=== PATIENT | male | born 1935 | race Caucasian/White ===

== ENCOUNTER 2017-02-04 10:09 | Inpatient (IN) | payer OTHER ==
--- NOTE | ~2017-02-04 | IDS ---
Interim Discharge Summary [facility] [address] [place]. [address] NAME: JASON HODGE : 31 STATUS : DIS IN PAT#: [id number] AGE: 81 ADM/REG DATE : 02/04/17 MR#: [id number] REPORT SERV DATE: 02/06/17 DICTATED BY: JASPER HILL DATE: 02/06/17 REPORT STATUS : Draft TRANSCRIBED BY: MODL DATE: 02/06/17 ADMISSION DATE: 02/04/2017 DISCHARGE DATE: 02/06/2017 INTERIM DIAGNOSES: 1. Status post ventricular tachycardia and ventricular fibrillation arrest. 2. Acute hypoxic respiratory failure. 3. Shock. 4. Acute liver injury. 5. Acute renal failure. 6. Atrial fibrillation with rapid ventricular response. 7. Acute encephalopathy. ICU COURSE: Please see dictated H and P for full patient presentation and history. BRIEF SUMMARY: The patient is an 81-year-old gentleman who was admitted to the hospital on the 02/04/2017, after experiencing an out of hospital ventricular tachycardic and ventricular fibrillation arrest in his physician's office. The patient was down for approximately 2-3 minutes before EMS arrived and began performing CPR. On arrival to the emergency room here, he was nonresponsive and having signs of posturing, so hypothermia was initiated in the emergency room and he was admitted to the CCU for further management. 1. Acute encephalopathy. There was concern for resulting anoxic injury following his arrest. The patient has been on hypothermia protocol, as of this morning he has been re-warmed and will now be maintained with normothermia for the remainder of the 72-hour period, at that time if the patient is still unresponsive we will get a Neurology consult to begin assessing his neuro function and prognosis. For now, we will continue with normothermia protocol until the 72 hours are up. We will be giving him a sedation holiday this morning to initially assess his mental status. 2. Acute hypoxic respiratory failure. The patient remains on the ventilator. We will continue with ventilator management. For the remainder of the hypothermia protocol for targeting a PO2 greater than 80 and a pCO2 between 30 and 45 to help with cerebral perfusion. Once the normothermia phase is over we will begin weaning his ventilator further as tolerated. 3. Shock. The patient remains on Levophed to maintain a MAP greater than 80, again to help with cerebral perfusion. Once normothermia is over we can start weaning for a MAP greater than 60. 4. Acute liver injury. LFTs were initially secondary to shock that has been trending down. We will continue to monitor this daily. 5. Acute renal failure. The patient's renal function has been good so far. His creatinine is elevated today compared to yesterday, but he still maintains good urine output. I am going to give him some gentle IV fluids today and continue to monitor his urine output closely. 6. Atrial fibrillation with rapid ventricular response. Cardiology has been managing this. He has been on a lidocaine drip and then had a rapid ventricular response early this morning, so they have now switched him to IV amiodarone. We will continue to defer management to them. He has also been on a heparin drip and he will likely need a Interim Discharge Summary [address] [address] NAME: JASON HODGE : 31 STATUS : DIS IN PAT#: [id number] AGE: 81 ADM/REG DATE : 02/04/17 MR#: [id number] REPORT SERV DATE: 02/06/17 DICTATED BY: JASPER HILL DATE: 02/06/17 REPORT STATUS : Draft TRANSCRIBED BY: MODL DATE: 02/06/17 cardiac catheterization if his neuro function is good given his ventricular tachycardia arrest. 7. The patient remains critically ill in the ICU. The oncoming real estate transaction coordinator will assume care tomorrow. Please call if you have any questions. RAMON/MODL Jasper Hill MD / [id number] CC: Mao Delgado M.D. Juanito Sepulveda M.D.
--- NOTE | ~2017-02-04 | CN ---
Consultation Report [facility] [address] [facility] [place]. [address] NAME: JASON HODGE : 33 STATUS : DIS IN PAT#: [id number] AGE: 81 ADM/REG DATE : 02/04/17 MR#: [id number] REPORT SERV DATE: 02/04/17 DICTATED BY: DATE: REPORT STATUS : Draft TRANSCRIBED BY: MODL DATE: 02/04/17 CONSULTATION DATE OF CONSULTATION: 02/04/2017 CHIEF COMPLAINT/REASON FOR CONSULT: VF arrest. PRIMARY CARE PROFESSIONALS: Bridger Lemus M.D. History and physical was taken from his as the patient is intubated and unresponsive. HISTORY OF PRESENT ILLNESS: The patient is a very pleasant 81-year-old gentleman, who was on his way for a CT evaluation of his thoracic aorta. Today, his stated that he felt well when getting up and getting ready to go to his appointment. While driving in the car, he began to feel dizzy. 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 The patient reportedly had VF via EMS and underwent cardioversion. He also had VF documented on strip here in the emergency department and was cardioverted with 200 joules x1 and now remains in atrial fibrillation. Epi 1 mg and 1 mg of bicarb were given and an amiodarone drip started. The patient is currently in atrial fibrillation with rapid ventricular response at 115 beats per minute. PAST MEDICAL HISTORY: 1. Chronic atrial fibrillation, on chronic anticoagulation therapy. 2. Normal left ventricular systolic function via echocardiogram performed on 01/15/2017. 3. Mild aortic stenosis. 4. COPD. 5. Hypertension. 6. Hyperlipidemia. 7. Peripheral vascular disease. SOCIAL HISTORY: The patient is . He is a former smoker. He does not use alcohol or extracurricular drugs. ALLERGIES: AMIODARONE AND SOTALOL. OUTPATIENT MEDICATIONS: Include: 1. Diltiazem 240 mg per day. 2. Hydrocodone/acetaminophen. 3. Prinivil 20 mg p.o. daily. 4. Ativan 0.5 mg p.o. q.p.m. 5. Prilosec 20 mg p.o. daily. 6. Pravachol 20 mg p.o. q.p.m. 7. Jantoven. Consultation Report [facility] [address] [place]. [address] NAME: JASON HODGE : 33 STATUS : DIS IN PAT#: [id number] AGE: 81 ADM/REG DATE : 02/04/17 MR#: [id number] REPORT SERV DATE: 02/04/17 DICTATED BY: DATE: REPORT STATUS : Draft TRANSCRIBED BY: MODL DATE: 02/04/17 REVIEW OF SYSTEMS: Unobtainable as the patient is intubated and sedated. PHYSICAL EXAMINATION: VITAL SIGNS: Heart rate 115. Blood pressure is 146/63. GENERAL: Mr. Hodge is unresponsive. HEENT: His pupils are pinpoint. NECK: I could not appreciate jugular venous distention. There is an irregular jugular venous pulse consistent with atrial fibrillation. HEART: Irregular. Soft S1, S2. There is a 2/6 systolic murmur present at the left sternal border. LUNGS: Clear anteriorly. Noted the chest is flail. Irritation of the chest consistent with CPR is noted. ABDOMEN: Soft and nontender. EXTREMITIES: Cool. The right toe is blue. There are venous varicosities. I could not appreciate any pitting edema. NEUROLOGIC: The patient is unresponsive at this time. He has not been sedated nor has he been paralyzed. RESULTS OF TESTS AND STUDIES: I have reviewed the strip performed at 0959 hours, which documented ventricular fibrillation. An initial EKG performed in the emergency department demonstrated a right bundle-branch block with underlying atrial fibrillation. There was ST- elevation in the inferior leads and ST-segment depression in the anterolateral leads suggestive of ischemia. Repeat EKG performed at 1024 hours documented the patient's underlying atrial fibrillation with mild anterolateral ST-segment depression suggestive of ischemia. A transthoracic echocardiogram performed on 01/15/2017 demonstrated normal left ventricular systolic function and mild aortic stenosis. Limited laboratory results are available. Hemoglobin 13.5, hematocrit of 41.3, platelet count is 256. INR is 1.9. pH is 7.11, pO2 416. Oxygen saturations 99%. IMPRESSION, REPORT, AND PLAN: 1. Ventricular fibrillation arrest. Unclear etiology. 2. Chronic atrial fibrillation. 3. Hypertension. 4. Peripheral vascular disease. 5. Hyperlipidemia. RECOMMENDATIONS: 1. Would DC amiodarone drip. He has an unknown allergy to amiodarone per his . 2. We would start lidocaine at 1 mg/minute. 3. We will await the rest of his electrolyte panel and cardiac biomarkers. 4. Check echocardiogram to evaluate for regional wall motion abnormalities. 5. Start low-dose Coreg as blood pressure tolerates. 6. Additional recommendations pending clinical course and neurologic . Consultation Report [facility] [address] [place]. [address] NAME: JASON HODGE : 33 STATUS : DIS IN PAT#: [id number] AGE: 81 ADM/REG DATE : 02/04/17 MR#: [id number] REPORT SERV DATE: 02/04/17 DICTATED BY: DATE: REPORT STATUS : Draft TRANSCRIBED BY: KVNG DATE: 02/04/17 [facility]/KVNG Daniella Berry M.D. / [id number] CC: Thania Lo M.D.
--- NOTE | ~2017-02-04 | DS ---
Discharge Summary [facility] [id number] [facility] [place]. 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 HOSPITAL COURSE: Please see history and physical by Dr. Delgado on 02/04/2017 for full detail and interim discharge summary on 02/06/[address] Hill. Of note, this patient was admitted with a post-cardiac arrest and ventricular tachycardia arrest out in the field and has sustained a multisystem organ failure. He is currently with findings of anoxic brain injury, family is at the bedside. The patient has been placed on hypothermia protocol and now has been rewarmed. The patient has had no significant improvement with his mental status after rewarming. The family felt that this is not in the patient's best interest that this is not what he would want to have done for him. He was already made DO NOT RESUSCITATE earlier in the day and this evening patient was transitioned to comfort care and around 5 or 6 o'clock this evening. Please see nursing documentation for exact timing. DISPOSITION: . DICTATED BY: Keren Jarquin MD [facility]/KVNG Keren Jarquin MD / [id number] CC: Thania Lo M.D.
--- NOTE | ~2017-02-04 | HP ---
History And Physical [address] [address] NAME: JASON HODGE : 33 STATUS : DIS IN PAT#: [id number] AGE: 81 ADM/REG DATE : 02/04/17 MR#: [id number] REPORT SERV DATE: 02/04/17 DICTATED BY: CAROLINE DELGADO DATE: 02/04/17 REPORT STATUS : Draft TRANSCRIBED BY: MODL DATE: 02/04/17 DATE OF ADMISSION: 02/04/2017 TIME: 1030 hours. LOCATION: Seen in ER room 3. HISTORY OF PRESENT ILLNESS: The patient is an 81-year-old, white male with known history of cardiac disease. He is being followed by Dr. Lemus. He was on his way to the hospital today to get a CT of his aortic root with a suspected aneurysm. During the way, he had chest discomfort, then went into a VFib arrest. According to the paramedics, he was down for around 9 to 10 minutes. CPR was ongoing at this time. His rhythm returned after 1 shock and 2 doses of epi, 1 dose of bicarbonate. His post arrest pH showed a pH of 7.13, base deficit -12 with excellent PO2. He was given 4 amps of bicarb. Other labs are not available. EKG, rhythm strip showed VFib. Post conversion EKG shows atrial flutter with ST elevations and depressions. PAST MEDICAL HISTORY: Significant for hypertension. He is on an angiotensin-converting enzyme inhibitor and beta-christiana and anti-inflammatory medication. ALLERGIES: AMIODARONE PREVIOUSLY. THE PATIENT HAD REQUIRED INTUBATION. REVIEW OF SYSTEMS: Otherwise, negative and noncontributory. He does have some known peripheral vascular disease. FAMILY HISTORY: Noncontributory. PHYSICAL EXAMINATION: VITAL SIGNS: Blood pressure 111/90, pulse 115 and regular, afebrile. HEENT: Head is normocephalic. Pupils are pinpoint. NECK: Supple. CHEST: Decreased breath sounds with definite flail anteriorly. ABDOMEN: Soft, nontender. No masses or organomegaly. EXTREMITIES: No clubbing, cyanosis, or edema. Pulses palpable. NEUROLOGIC: Nonresponsive. Chest x-ray shows good placement of ET tube. No pneumothorax. Other labs are pending at this time. Previous echo that was done in 2012 showed an EF of 65%. RP/MODL Caroline Delgado M.D. History And Physical [address] [address] NAME: JASON HODGE : 33 STATUS : DIS IN PAT#: [id number] AGE: 81 ADM/REG DATE : 02/04/17 MR#: [id number] REPORT SERV DATE: 02/04/17 DICTATED BY: CAROLINE DELGADO DATE: 02/04/17 REPORT STATUS : Draft TRANSCRIBED BY: KVNG DATE: 02/04/17 / [id number] CC: Thania Lo M.D.
--- NOTE | ~2017-02-04 | HP ---
History And Physical [address] [address] NAME: JASON HODGE : 31 STATUS : DIS IN PAT#: [id number] AGE: 81 ADM/REG DATE : 02/04/17 MR#: [id number] REPORT SERV DATE: 02/04/17 DICTATED BY: CAROLINE DELGADO DATE: 02/04/17 REPORT STATUS : Draft TRANSCRIBED BY: MODL DATE: 02/04/17 DATE OF ADMISSION: 02/04/2017 ADDENDUM: IMPRESSION: Status post cardiac arrest, possible myocardial infarction, mild chronic obstructive pulmonary disease, peripheral vascular disease. We will initiate hypothermia protocol. Dr. Berry of Cardiology is seeing the patient. SIMEON/KVNG Caroline Delgado M.D. / [id number] CC: Thania Lo M.D.
[~2017-02-04 10:09] MED LIST: ASAB PO; BUM1 PO; CARDCD180 PO; CARDIZEM LA360 MG PO; CORDARONE PO; JANTOVEN4 MG PO; JANTOVEN5 MG PO; JANTOVEN6 MG PO; MULTIVITAMI1 PO; P10 PO; PRAVAC PO; PRILO PO; PRIN10 PO; SLO-NIACIN250 MG PO; SOTALOL; VENTOLIN HFA INH; ZESTRIL20 MG PO; [UNRECOGNIZED DRUG - REMARK]; [UNRECOGNIZED DRUG - REMARK]; [UNRECOGNIZED DRUG - REMARK]
[2017-02-04 10:33] LABS: BASOPHILS 0.3 %; BASOPHILS ABSOLUTE 0.03 10/3/uL (0.0-0.16); EOSINOPHILS 0.2 %; EOSINOPHILS ABSOLUTE 0.02 10/3/uL (0.0-0.53); ER CBC TAT 0 Hrs 07 Mins; HEMATOCRIT 41.3 % (40.0-51.0); HEMOGLOBIN 13.5 g/dL (13.6-17.8); IMMATURE GRANULOCYTES 1.2 %; IMMATURE GRANULOCYTES ABSOLUTE 0.14 10/3/uL (0.0-0.11); LYMPHOCYTES 42.2 %; LYMPHOCYTES ABSOLUTE 4.73 10/3/uL (0.67-4.30); MANUAL DIFF NO %; MEAN CORPUS HGB CONC 32.7 g/dL (32.0-36.0); MEAN CORPUSCULAR HEMOGLOB 28.7 pg (26.0-34.0); MEAN CORPUSCULAR VOLUME 87.7 fL (80-100); MEAN PLATELET VOLUME 9.7 fL (9.2-13.0); MONOCYTES 7.3 %; MONOCYTES ABSOLUTE 0.82 10/3/uL (0.21-1.20); NEUTROPHILS 48.8 %; NEUTROPHILS ABSOLUTE 5.48 10/3/uL (2.02-8.40); PLATELET COUNT 256 10/3/uL (150-400); RBC DISTRIBUTION WIDTH 15.2 % (12.0-16.0); RED CELL COUNT 4.71 10/6/uL (4.7-6.1); WHITE BLOOD CELLS 11.2 10/3/uL (4.5-10.5)
[2017-02-04 10:34] LABS: BE (BASE EXCESS) -12.1 MEQ/L (0 +/- 2.5); HCO3 (ACTUAL BICARBONATE) 18.1 MEQ/L (23-27); INSTRUMENT SERIAL # 8087; PCO2 (CO2 TENSION) 59 MMHG (35-45); PO2 (O2 TENSION) 416 MMHG (79-93); pH 7.11 (7.37-7.43)
[2017-02-04 10:35] LABS: ALLENS TEST Pos; MODE CMV; SAMPLE Arterial
[2017-02-04 10:40] LABS: INTERNATIONAL NORMAL RATI 1.9 UNITS (-); PARTIAL THROMBO TIME 26.3 SEC (22.5-37.2); PROTIME (NOT ORD) 21.8 SEC (12.0-14.5)
[2017-02-04] MEDS ORDERED: CARDCD240 PO (10:44)
[2017-02-04] MEDS ORDERED: NORCO1 TAB PO (10:46)
[2017-02-04] MEDS ORDERED: PRIN20 PO (10:46)
[2017-02-04] MEDS ORDERED: JANTOVEN3 MG PO (10:46)
[2017-02-04] MEDS ORDERED: PRAVAC PO (10:47)
[2017-02-04] MEDS ORDERED: PRILO PO (10:47)
[2017-02-04] MEDS ORDERED: ATV.5 PO (10:47)
[2017-02-04 10:49] LABS: A/G RATIO 0.8 (0.7-1.9); ALBUMIN 3.2 G/DL (3.5-5.0); ALKALINE PHOSPHATASE 76 U/L (45-117); BUN (BLOOD UREA NITROGEN) 26 MG/DL (6-23); CALCIUM, SERUM 8.7 MG/DL (8.5-10.4); CHEST PAIN PROFILE TAT 0 Hrs 23 Mins; CHLORIDE, SERUM 103 MMOL/L (96-112); CO2 (CARBON DIOXIDE) 24 MMOL/L (24-34); CREATININE 1.14 MG/DL (0.70-1.30); GFR AFRICAN AMERICAN 69 ML/MIN (>=60); GFR NON AFRICAN AMERICAN 59 ML/MIN (>=60); GLUCOSE, SERUM 211 MG/DL (60-99); POTASSIUM, SERUM 3.9 MMOL/L (3.5-5.3); SGOT(AST) 45 U/L (5-40); SGPT(ALT) 53 U/L (5-65); SODIUM, SERUM 139 MMOL/L (135-148); TOTAL BILIRUBIN 0.8 MG/DL (0-1.2); TOTAL PROTEIN 7.2 G/DL (6.0-8.5); TROPONIN I <0.02 NG/ML (<0.05)
[2017-02-04 10:50] LABS: LACTATE 5.9 MMOL/L (0.3-2.4)
[2017-02-04 10:56] LABS: WBC (NOT ORDERED) (RFLEX) 0 (0-5)
[2017-02-04 11:10] LABS: ASCORBIC ACID (UR NOT ORDER) NEG (NEG); BILIRUBIN, URINE NEGATIVE (NEG); ER URINALYSIS TAT 0 Hrs 14 Mins; KETONE, URINE NEGATIVE (NEG); LEUKOCYTE ESTERASE(NOT OR NEG (NEG); NITRITE (URINE) NEG (NEG)
[2017-02-04 16:00] LABS: BE (BASE EXCESS) -2.6 MEQ/L (0 +/- 2.5); CARBOXYHEMOGLOBIN 0.3 % (0-3); HCO3 (ACTUAL BICARBONATE) 26.6 MEQ/L (23-27); HEMOBLOGIN CONTENT 13.5 G/DL (14-18); INSTRUMENT SERIAL # 35151; METHEMOGLOBIN 0.5 % (0-3); O2 CONTENT 18.2 VOL% (18-24); PCO2 (CO2 TENSION) 67 MMHG (35-45); PO2 (O2 TENSION) 103 MMHG (79-93); pH 7.21 (7.37-7.43)
[2017-02-04 16:01] LABS: MODE CMV; SAMPLE Arterial; TIDAL VOLUME 500 ML
[2017-02-04 17:07] LABS: ALLENS TEST Pos; BE (BASE EXCESS) -1.8 MEQ/L (0 +/- 2.5); CARBOXYHEMOGLOBIN 0.6 % (0-3); HCO3 (ACTUAL BICARBONATE) 24.9 MEQ/L (23-27); HEMOBLOGIN CONTENT 13.4 G/DL (14-18); INSTRUMENT SERIAL # 35151; METHEMOGLOBIN 0.5 % (0-3); MODE CMV; O2 CONTENT 18.8 VOL% (18-24); PCO2 (CO2 TENSION) 50 MMHG (35-45); PO2 (O2 TENSION) 183 MMHG (79-93); SAMPLE Arterial; TIDAL VOLUME 500 ML; pH 7.32 (7.37-7.43)
[2017-02-04 17:15] LABS: A/G RATIO 0.9 (0.7-1.9); ALBUMIN 3.2 G/DL (3.5-5.0); ALKALINE PHOSPHATASE 78 U/L (45-117); CALCIUM, SERUM 9.1 MG/DL (8.5-10.4); CHLORIDE, SERUM 103 MMOL/L (96-112); CK-MB 25.3 NG/ML; CO2 (CARBON DIOXIDE) 26 MMOL/L (24-34); CPK 962 U/L (0-200); CREATININE 1.22 MG/DL (0.70-1.30); GFR AFRICAN AMERICAN 63 ML/MIN (>=60); GFR NON AFRICAN AMERICAN 54 ML/MIN (>=60); GLOBULIN 3.7 G/DL (2.5-4.1); GLUCOSE, SERUM 211 MG/DL (60-99); PHOSPHORUS, SERUM 5.5 MG/DL (2.5-4.5); SGOT(AST) 236 U/L (5-40); SGPT(ALT) 227 U/L (5-65); SODIUM, SERUM 138 MMOL/L (135-148); TOTAL BILIRUBIN 0.9 MG/DL (0-1.2); TOTAL PROTEIN 6.9 G/DL (6.0-8.5)
[2017-02-04 17:17] LABS: BUN (BLOOD UREA NITROGEN) 33 MG/DL (6-23); CKMB INDEX (NOT ORD) 2.6
[2017-02-04 17:20] LABS: TROPONIN I 2.36 NG/ML (<0.05)
[2017-02-04 18:19] LABS: BE (BASE EXCESS) -1.2 MEQ/L (0 +/- 2.5); CARBOXYHEMOGLOBIN 0.6 % (0-3); HCO3 (ACTUAL BICARBONATE) 25.5 MEQ/L (23-27); HEMOBLOGIN CONTENT 13.5 G/DL (14-18); INSTRUMENT SERIAL # 35151; METHEMOGLOBIN 0.5 % (0-3); O2 CONTENT 18.2 VOL% (18-24); PCO2 (CO2 TENSION) 51 MMHG (35-45); PO2 (O2 TENSION) 98 MMHG (79-93); SAMPLE Arterial; pH 7.32 (7.37-7.43)
[2017-02-04 18:20] LABS: ALLENS TEST Pos; MODE CMV; TIDAL VOLUME 550 ML
[2017-02-04 19:48] LABS: BE (BASE EXCESS) -1.2 MEQ/L (0 +/- 2.5); CARBOXYHEMOGLOBIN 0.5 % (0-3); HCO3 (ACTUAL BICARBONATE) 22.5 MEQ/L (23-27); INSTRUMENT SERIAL # 35151; METHEMOGLOBIN 0.3 % (0-3); MODE CMV; O2 CONTENT 17.7 VOL% (18-24); OPERATOR ID 13861; PCO2 (CO2 TENSION) 35 MMHG (35-45); PO2 (O2 TENSION) 98 MMHG (79-93); SAMPLE Arterial; TIDAL VOLUME 550 ML; pH 7.43 (7.37-7.43)
[2017-02-04 20:27] LABS: PHOSPHORUS, SERUM 3.7 MG/DL (2.5-4.5); POTASSIUM, SERUM 3.7 MMOL/L (3.5-5.3); TROPONIN I 2.22 NG/ML (<0.05)
[2017-02-04 20:30] LABS: B NATRIURETIC PEPTIDE (BNP) 514.4 PG/ML (< 100.0)
[2017-02-04 20:58] LABS: GLYCOHEMOGLOBIN (HbA1c) 6.6 % (4.7-6.1)
[2017-02-04 20:58] LABS: BASOPHILS 0.1 %; BASOPHILS ABSOLUTE 0.02 10/3/uL (0.0-0.16); EOSINOPHILS 0 %; HEMATOCRIT 34.7 % (40.0-51.0); HEMOGLOBIN 11.6 g/dL (13.6-17.8); IMMATURE GRANULOCYTES 0.3 %; IMMATURE GRANULOCYTES ABSOLUTE 0.05 10/3/uL (0.0-0.11); LYMPHOCYTES 6.3 %; LYMPHOCYTES ABSOLUTE 0.96 10/3/uL (0.67-4.30); MANUAL DIFF NO %; MEAN CORPUS HGB CONC 33.4 g/dL (32.0-36.0); MEAN CORPUSCULAR HEMOGLOB 28.3 pg (26.0-34.0); MEAN CORPUSCULAR VOLUME 84.6 fL (80-100); MONOCYTES 8.6 %; MONOCYTES ABSOLUTE 1.32 10/3/uL (0.21-1.20); NEUTROPHILS 84.7 %; NEUTROPHILS ABSOLUTE 12.97 10/3/uL (2.02-8.40); PLATELET COUNT 263 10/3/uL (150-400); RBC DISTRIBUTION WIDTH 15.1 % (12.0-16.0); WHITE BLOOD CELLS 15.3 10/3/uL (4.5-10.5)
[2017-02-04 21:03] LABS: PARTIAL THROMBO TIME 29.7 SEC (22.5-37.2)
[2017-02-04 21:04] LABS: PROTIME (NOT ORD) 22.6 SEC (12.0-14.5)
[2017-02-05 01:49] LABS: BASOPHILS 0.2 %; BASOPHILS ABSOLUTE 0.02 10/3/uL (0.0-0.16); EOSINOPHILS 0.1 %; EOSINOPHILS ABSOLUTE 0.01 10/3/uL (0.0-0.53); HEMATOCRIT 34.5 % (40.0-51.0); HEMOGLOBIN 11.7 g/dL (13.6-17.8); IMMATURE GRANULOCYTES 0.4 %; IMMATURE GRANULOCYTES ABSOLUTE 0.05 10/3/uL (0.0-0.11); LYMPHOCYTES 13.8 %; LYMPHOCYTES ABSOLUTE 1.58 10/3/uL (0.67-4.30); MEAN CORPUS HGB CONC 33.9 g/dL (32.0-36.0); MEAN CORPUSCULAR HEMOGLOB 28.7 pg (26.0-34.0); MEAN CORPUSCULAR VOLUME 84.8 fL (80-100); MEAN PLATELET VOLUME 8.9 fL (9.2-13.0); MONOCYTES 11.4 %; MONOCYTES ABSOLUTE 1.31 10/3/uL (0.21-1.20); NEUTROPHILS 74.1 %; PLATELET COUNT 250 10/3/uL (150-400); RED CELL COUNT 4.07 10/6/uL (4.7-6.1); WHITE BLOOD CELLS 11.5 10/3/uL (4.5-10.5)
[2017-02-05 02:01] LABS: MANUAL DIFF NO %
[2017-02-05 02:09] LABS: INTERNATIONAL NORMAL RATI 2.1 UNITS (-); PARTIAL THROMBO TIME 34.4 SEC (22.5-37.2); PROTIME (NOT ORD) 23.7 SEC (12.0-14.5)
[2017-02-05 02:14] LABS: A/G RATIO 0.8 (0.7-1.9); ALBUMIN 2.7 G/DL (3.5-5.0); ALKALINE PHOSPHATASE 70 U/L (45-117); BUN (BLOOD UREA NITROGEN) 26 MG/DL (6-23); CALCIUM, SERUM 8.8 MG/DL (8.5-10.4); CHLORIDE, SERUM 107 MMOL/L (96-112); CO2 (CARBON DIOXIDE) 27 MMOL/L (24-34); CPK 2375 U/L (0-200); CREATININE 0.88 MG/DL (0.70-1.30); GFR AFRICAN AMERICAN 92 ML/MIN (>=60); GFR NON AFRICAN AMERICAN 79 ML/MIN (>=60); GLOBULIN 3.2 G/DL (2.5-4.1); GLUCOSE, SERUM 163 MG/DL (60-99); PHOSPHORUS, SERUM 2.5 MG/DL (2.5-4.5); POTASSIUM, SERUM 3.2 MMOL/L (3.5-5.3); SGOT(AST) 176 U/L (5-40); SGPT(ALT) 181 U/L (5-65); SODIUM, SERUM 142 MMOL/L (135-148); TOTAL BILIRUBIN 0.7 MG/DL (0-1.2); TOTAL PROTEIN 5.9 G/DL (6.0-8.5)
[2017-02-05 02:15] LABS: BE (BASE EXCESS) 1.6 MEQ/L (0 +/- 2.5); CARBOXYHEMOGLOBIN 0.4 % (0-3); HCO3 (ACTUAL BICARBONATE) 22.9 MEQ/L (23-27); HEMOBLOGIN CONTENT 12.5 G/DL (14-18); INSTRUMENT SERIAL # 35151; METHEMOGLOBIN 0.4 % (0-3); MODE CMV; OPERATOR ID 13861; PCO2 (CO2 TENSION) 27 MMHG (35-45); PO2 (O2 TENSION) 93 MMHG (79-93); SAMPLE Arterial; TIDAL VOLUME 550 ML; pH 7.55 (7.37-7.43)
[2017-02-05 03:30] LABS: CARBOXYHEMOGLOBIN 0.4 % (0-3); HCO3 (ACTUAL BICARBONATE) 24.5 MEQ/L (23-27); HEMOBLOGIN CONTENT 12.5 G/DL (14-18); INSTRUMENT SERIAL # 35151; METHEMOGLOBIN 0.3 % (0-3); MODE CMV; O2 CONTENT 17.1 VOL% (18-24); OPERATOR ID 33449; PCO2 (CO2 TENSION) 35 MMHG (35-45); PO2 (O2 TENSION) 105 MMHG (79-93); SAMPLE Arterial; TIDAL VOLUME 550 ML; pH 7.46 (7.37-7.43)
[2017-02-05 05:51] LABS: BASOPHILS 0.1 %; BASOPHILS ABSOLUTE 0.01 10/3/uL (0.0-0.16); EOSINOPHILS 0.1 %; EOSINOPHILS ABSOLUTE 0.01 10/3/uL (0.0-0.53); HEMATOCRIT 36.8 % (40.0-51.0); HEMOGLOBIN 12.2 g/dL (13.6-17.8); IMMATURE GRANULOCYTES 0.4 %; IMMATURE GRANULOCYTES ABSOLUTE 0.05 10/3/uL (0.0-0.11); LYMPHOCYTES 15.3 %; LYMPHOCYTES ABSOLUTE 1.71 10/3/uL (0.67-4.30); MEAN CORPUS HGB CONC 33.2 g/dL (32.0-36.0); MEAN CORPUSCULAR HEMOGLOB 28.3 pg (26.0-34.0); MEAN CORPUSCULAR VOLUME 85.4 fL (80-100); MEAN PLATELET VOLUME 9.1 fL (9.2-13.0); MONOCYTES 12.2 %; MONOCYTES ABSOLUTE 1.36 10/3/uL (0.21-1.20); NEUTROPHILS 71.9 %; NEUTROPHILS ABSOLUTE 8.02 10/3/uL (2.02-8.40); PLATELET COUNT 265 10/3/uL (150-400); RBC DISTRIBUTION WIDTH 15.1 % (12.0-16.0); RED CELL COUNT 4.31 10/6/uL (4.7-6.1); WHITE BLOOD CELLS 11.2 10/3/uL (4.5-10.5)
[2017-02-05 05:53] LABS: MANUAL DIFF NO %
[2017-02-05 06:06] LABS: A/G RATIO 0.8 (0.7-1.9); ALBUMIN 2.8 G/DL (3.5-5.0); ALKALINE PHOSPHATASE 76 U/L (45-117); BUN (BLOOD UREA NITROGEN) 27 MG/DL (6-23); CALCIUM, SERUM 8.7 MG/DL (8.5-10.4); CHLORIDE, SERUM 108 MMOL/L (96-112); CO2 (CARBON DIOXIDE) 25 MMOL/L (24-34); CREATININE 0.91 MG/DL (0.70-1.30); GFR AFRICAN AMERICAN 90 ML/MIN (>=60); GFR NON AFRICAN AMERICAN 78 ML/MIN (>=60); GLOBULIN 3.5 G/DL (2.5-4.1); GLUCOSE, SERUM 151 MG/DL (60-99); SGOT(AST) 166 U/L (5-40); SGPT(ALT) 189 U/L (5-65); SODIUM, SERUM 142 MMOL/L (135-148); TOTAL BILIRUBIN 0.6 MG/DL (0-1.2); TOTAL PROTEIN 6.3 G/DL (6.0-8.5)
[2017-02-05 06:07] LABS: PHOSPHORUS, SERUM 3.9 MG/DL (2.5-4.5); POTASSIUM, SERUM 4.1 MMOL/L (3.5-5.3)
[2017-02-05 06:20] LABS: INTERNATIONAL NORMAL RATI 2.3 UNITS (-); PROTIME (NOT ORD) 24.9 SEC (12.0-14.5)
[2017-02-05 08:36] LABS: PHOSPHORUS, SERUM 3.6 MG/DL (2.5-4.5); POTASSIUM, SERUM 3.8 MMOL/L (3.5-5.3)
[2017-02-05 14:22] LABS: A/G RATIO 0.8 (0.7-1.9); ALBUMIN 2.6 G/DL (3.5-5.0); ALKALINE PHOSPHATASE 67 U/L (45-117); CALCIUM, SERUM 8.8 MG/DL (8.5-10.4); CHLORIDE, SERUM 110 MMOL/L (96-112); CK-MB 20.7 NG/ML; CO2 (CARBON DIOXIDE) 26 MMOL/L (24-34); CPK 1634 U/L (0-200); CREATININE 0.83 MG/DL (0.70-1.30); GFR AFRICAN AMERICAN 94 ML/MIN (>=60); GFR NON AFRICAN AMERICAN 81 ML/MIN (>=60); GLOBULIN 3.3 G/DL (2.5-4.1); GLUCOSE, SERUM 129 MG/DL (60-99); PHOSPHORUS, SERUM 3.6 MG/DL (2.5-4.5); POTASSIUM, SERUM 3.7 MMOL/L (3.5-5.3); SGOT(AST) 138 U/L (5-40); SGPT(ALT) 186 U/L (5-65); SODIUM, SERUM 143 MMOL/L (135-148); TOTAL BILIRUBIN 0.5 MG/DL (0-1.2); TOTAL PROTEIN 5.9 G/DL (6.0-8.5)
[2017-02-05 14:23] LABS: BUN (BLOOD UREA NITROGEN) 23 MG/DL (6-23); CKMB INDEX (NOT ORD) 1.3
[2017-02-05 15:05] LABS: BASOPHILS 0.2 %; BASOPHILS ABSOLUTE 0.02 10/3/uL (0.0-0.16); EOSINOPHILS 0.3 %; EOSINOPHILS ABSOLUTE 0.03 10/3/uL (0.0-0.53); HEMATOCRIT 34.4 % (40.0-51.0); HEMOGLOBIN 11.6 g/dL (13.6-17.8); IMMATURE GRANULOCYTES 0.2 %; IMMATURE GRANULOCYTES ABSOLUTE 0.02 10/3/uL (0.0-0.11); LYMPHOCYTES 11.6 %; LYMPHOCYTES ABSOLUTE 1.26 10/3/uL (0.67-4.30); MEAN CORPUS HGB CONC 33.7 g/dL (32.0-36.0); MEAN CORPUSCULAR HEMOGLOB 28.5 pg (26.0-34.0); MEAN CORPUSCULAR VOLUME 84.5 fL (80-100); MEAN PLATELET VOLUME 9.1 fL (9.2-13.0); MONOCYTES 8.5 %; MONOCYTES ABSOLUTE 0.92 10/3/uL (0.21-1.20); NEUTROPHILS 79.2 %; NEUTROPHILS ABSOLUTE 8.57 10/3/uL (2.02-8.40); PLATELET COUNT 228 10/3/uL (150-400); RBC DISTRIBUTION WIDTH 15.5 % (12.0-16.0); RED CELL COUNT 4.07 10/6/uL (4.7-6.1); WHITE BLOOD CELLS 10.8 10/3/uL (4.5-10.5)
[2017-02-05 15:06] LABS: MANUAL DIFF NO %
[2017-02-05 15:12] LABS: INTERNATIONAL NORMAL RATI 3.1 UNITS (-); PARTIAL THROMBO TIME 40.7 SEC (22.5-37.2)
[2017-02-05 18:43] LABS: PHOSPHORUS, SERUM 3.8 MG/DL (2.5-4.5); POTASSIUM, SERUM 3.8 MMOL/L (3.5-5.3)
[2017-02-05 20:56] LABS: PHOSPHORUS, SERUM 4.2 MG/DL (2.5-4.5); POTASSIUM, SERUM 3.8 MMOL/L (3.5-5.3)
[2017-02-06 03:17] LABS: BASOPHILS 0.1 %; BASOPHILS ABSOLUTE 0.02 10/3/uL (0.0-0.16); EOSINOPHILS 0.2 %; EOSINOPHILS ABSOLUTE 0.03 10/3/uL (0.0-0.53); HEMOGLOBIN 12.7 g/dL (13.6-17.8); IMMATURE GRANULOCYTES 0.6 %; IMMATURE GRANULOCYTES ABSOLUTE 0.09 10/3/uL (0.0-0.11); LYMPHOCYTES 12.7 %; MEAN CORPUS HGB CONC 32.9 g/dL (32.0-36.0); MEAN CORPUSCULAR HEMOGLOB 28.7 pg (26.0-34.0); MEAN PLATELET VOLUME 9.5 fL (9.2-13.0); MONOCYTES 6.1 %; MONOCYTES ABSOLUTE 0.86 10/3/uL (0.21-1.20); NEUTROPHILS 80.3 %; NEUTROPHILS ABSOLUTE 11.35 10/3/uL (2.02-8.40); PLATELET COUNT 255 10/3/uL (150-400); RBC DISTRIBUTION WIDTH 15.4 % (12.0-16.0); RED CELL COUNT 4.43 10/6/uL (4.7-6.1); WHITE BLOOD CELLS 14.2 10/3/uL (4.5-10.5)
[2017-02-06 03:19] LABS: HEMATOCRIT 38.6 % (40.0-51.0); MANUAL DIFF NO %; MEAN CORPUSCULAR VOLUME 87.1 fL (80-100)
[2017-02-06 03:33] LABS: A/G RATIO 0.8 (0.7-1.9); ALBUMIN 2.8 G/DL (3.5-5.0); BUN (BLOOD UREA NITROGEN) 26 MG/DL (6-23); CALCIUM, SERUM 8.6 MG/DL (8.5-10.4); CHLORIDE, SERUM 111 MMOL/L (96-112); CO2 (CARBON DIOXIDE) 25 MMOL/L (24-34); CREATININE 1.31 MG/DL (0.70-1.30); GFR AFRICAN AMERICAN 58 ML/MIN (>=60); GFR NON AFRICAN AMERICAN 50 ML/MIN (>=60); GLOBULIN 3.6 G/DL (2.5-4.1); GLUCOSE, SERUM 108 MG/DL (60-99); POTASSIUM, SERUM 4.5 MMOL/L (3.5-5.3); SGOT(AST) 125 U/L (5-40); SGPT(ALT) 221 U/L (5-65); SODIUM, SERUM 142 MMOL/L (135-148); TOTAL BILIRUBIN 0.5 MG/DL (0-1.2); TOTAL PROTEIN 6.4 G/DL (6.0-8.5)
[2017-02-06 03:35] LABS: PARTIAL THROMBO TIME 39.5 SEC (22.5-37.2); PROTIME (NOT ORD) 31.2 SEC (12.0-14.5)
[2017-02-06 03:37] LABS: ALKALINE PHOSPHATASE 79 U/L (45-117); PHOSPHORUS, SERUM 5.2 MG/DL (2.5-4.5)
[2017-02-06 03:54] LABS: BE (BASE EXCESS) -2.7 MEQ/L (0 +/- 2.5); CARBOXYHEMOGLOBIN 0.6 % (0-3); HCO3 (ACTUAL BICARBONATE) 22.1 MEQ/L (23-27); HEMOBLOGIN CONTENT 13.6 G/DL (14-18); INSTRUMENT SERIAL # 35151; METHEMOGLOBIN 0.5 % (0-3); MODE CMV; O2 CONTENT 18.1 VOL% (18-24); OPERATOR ID 15231; PCO2 (CO2 TENSION) 39 MMHG (35-45); PO2 (O2 TENSION) 87 MMHG (79-93); SAMPLE Arterial; TIDAL VOLUME 550 ML; pH 7.38 (7.37-7.43)
[2017-02-06 22:13] LABS: BUN (BLOOD UREA NITROGEN) 31 MG/DL (6-23); CALCIUM, SERUM 8.2 MG/DL (8.5-10.4); CHLORIDE, SERUM 108 MMOL/L (96-112); CO2 (CARBON DIOXIDE) 24 MMOL/L (24-34); CREATININE 1.36 MG/DL (0.70-1.30); GFR AFRICAN AMERICAN 55 ML/MIN (>=60); GFR NON AFRICAN AMERICAN 48 ML/MIN (>=60); GLUCOSE, SERUM 132 MG/DL (60-99); POTASSIUM, SERUM 4.6 MMOL/L (3.5-5.3); SODIUM, SERUM 139 MMOL/L (135-148)
[2017-02-07 03:33] LABS: BE (BASE EXCESS) -4.1 MEQ/L (0 +/- 2.5); CARBOXYHEMOGLOBIN 0.5 % (0-3); HCO3 (ACTUAL BICARBONATE) 20.7 MEQ/L (23-27); HEMOBLOGIN CONTENT 11.8 G/DL (14-18); INSTRUMENT SERIAL # 35151; METHEMOGLOBIN 0.4 % (0-3); MODE CMV; O2 CONTENT 15.5 VOL% (18-24); OPERATOR ID 13861; PCO2 (CO2 TENSION) 37 MMHG (35-45); PO2 (O2 TENSION) 76 MMHG (79-93); SAMPLE Arterial; TIDAL VOLUME 550 ML; pH 7.37 (7.37-7.43)
[2017-02-07 04:09] LABS: BASOPHILS 0.1 %; BASOPHILS ABSOLUTE 0.01 10/3/uL (0.0-0.16); EOSINOPHILS 0.1 %; EOSINOPHILS ABSOLUTE 0.01 10/3/uL (0.0-0.53); HEMOGLOBIN 10.9 g/dL (13.6-17.8); IMMATURE GRANULOCYTES 0.7 %; IMMATURE GRANULOCYTES ABSOLUTE 0.11 10/3/uL (0.0-0.11); LYMPHOCYTES 9.7 %; LYMPHOCYTES ABSOLUTE 1.64 10/3/uL (0.67-4.30); MEAN CORPUS HGB CONC 32.2 g/dL (32.0-36.0); MEAN CORPUSCULAR HEMOGLOB 28.2 pg (26.0-34.0); MEAN CORPUSCULAR VOLUME 87.8 fL (80-100); MEAN PLATELET VOLUME 9.4 fL (9.2-13.0); MONOCYTES 6.5 %; MONOCYTES ABSOLUTE 1.09 10/3/uL (0.21-1.20); NEUTROPHILS 82.9 %; PLATELET COUNT 237 10/3/uL (150-400); RBC DISTRIBUTION WIDTH 15.8 % (12.0-16.0); RED CELL COUNT 3.86 10/6/uL (4.7-6.1); WHITE BLOOD CELLS 16.9 10/3/uL (4.5-10.5)
[2017-02-07 04:14] LABS: HEMATOCRIT 33.9 % (40.0-51.0); MANUAL DIFF NO %
[2017-02-07 04:15] LABS: INTERNATIONAL NORMAL RATI 2.9 UNITS (-); PARTIAL THROMBO TIME 41.7 SEC (22.5-37.2); PROTIME (NOT ORD) 30.1 SEC (12.0-14.5)
[2017-02-07 04:27] LABS: A/G RATIO 0.7 (0.7-1.9); ALBUMIN 2.4 G/DL (3.5-5.0); BUN (BLOOD UREA NITROGEN) 29 MG/DL (6-23); CALCIUM, SERUM 8.3 MG/DL (8.5-10.4); CHLORIDE, SERUM 107 MMOL/L (96-112); CO2 (CARBON DIOXIDE) 23 MMOL/L (24-34); GFR AFRICAN AMERICAN 72 ML/MIN (>=60); GFR NON AFRICAN AMERICAN 62 ML/MIN (>=60); GLOBULIN 3.6 G/DL (2.5-4.1); GLUCOSE, SERUM 135 MG/DL (60-99); POTASSIUM, SERUM 4.2 MMOL/L (3.5-5.3); SGOT(AST) 68 U/L (5-40); SGPT(ALT) 127 U/L (5-65); SODIUM, SERUM 140 MMOL/L (135-148); TOTAL BILIRUBIN 0.6 MG/DL (0-1.2)
[2017-02-07 04:29] LABS: LACTATE 1.2 MMOL/L (0.3-2.4)
[2017-02-07 04:29] LABS: ALKALINE PHOSPHATASE 67 U/L (45-117)
== END 2017-02-07 19:00 | disposition expired | DRG 308 ==
LOC: ER 10:09 → CCU 11:22
PROVIDERS: Emergency Medicine; Internal Medicine; Internal Medicine Critical Care Medicine
PROC: 5A1945Z Respiratory Ventilation, 24-96 Consecutive Hours (ICD-10-PCS; principal; 2017-02-04)
PROC: 0BH17EZ Insertion of Endotracheal Airway into Trachea, Via Natural or Artificial Opening (ICD-10-PCS; 2017-02-04)
PROC: 02HV33Z Insertion of Infusion Device into Superior Vena Cava, Percutaneous Approach (ICD-10-PCS; 2017-02-04)
PROC: 4B02XTZ Measurement of Cardiac Defibrillator, External Approach (ICD-10-PCS; 2017-02-04)
DX: I49.01 Ventricular fibrillation (principal); K72.00 Acute and subacute hepatic failure without coma; J96.01 Acute respiratory failure with hypoxia; R57.9 Shock, unspecified; N17.9 Acute kidney failure, unspecified; G93.1 Anoxic brain damage, not elsewhere classified; J44.9 Chronic obstructive pulmonary disease, unspecified; I73.9 Peripheral vascular disease, unspecified; I46.9 Cardiac arrest, cause unspecified; I10 Essential (primary) hypertension; I47.2 Ventricular tachycardia; E78.2 Mixed hyperlipidemia; I71.4 Abdominal aortic aneurysm, without rupture; E11.65 Type 2 diabetes mellitus with hyperglycemia; I48.2 Chronic atrial fibrillation; I35.0 Nonrheumatic aortic (valve) stenosis; E78.5 Hyperlipidemia, unspecified; I45.10 Unspecified right bundle-branch block; Z66 Do not resuscitate; E78.00 Pure hypercholesterolemia, unspecified; I83.90 Asymptomatic varicose veins of unspecified lower extremity; Z87.891 Personal history of nicotine dependence; Z88.8 Allergy status to other drugs, medicaments and biological substances
CPT/HCPCS: 31720; 36569; 36600; 71010; 74000; 80048; 80053; 81001; 82533; 82550; 82553; 82805; 82947; 82962; 83036; 83605; 83690; 83735; 83880; 84100; 84132; 84439; 84443; 84484; 85025; 85610; 85730; 87040; 87070; 87205; 87641; 92950; 93005; 94002; 94003; 94770; 96365; 96375; 99291; A9270-GY; C1751; C8929; C9113; J0282; J3010; J3475; Q9957